=== PATIENT | female | born 1970 | race Caucasian/White ===

== ENCOUNTER 2016-06-23 10:55 | Emergency (ER) | payer MEDICARE ==
[~2016-06-23 10:55] MED LIST: BACTRIM DS TABL1 TAB PO; DICLOFENAC PO; EFFEXOR PO; EFFEXOR XR PO; FLEXERIL PO; IBUPROFEN800 MG PO; LIPITOR PO; MIRENA IUD; NAPROXEN PO; NEURONTIN300 MG PO; ORUDIS75 M1 PO; OYSTER SHELL C500 MG PO; PERCOCET 10/3251 TAB PO; PREDNISONE1 MG PO; PYRIDIUM PO; SILVADENE TOP; SUBOXONE 8 MG-1 EACH SL; SUBOXONE PO; TYLENOL ES PO; VITAMIN D400 UNI1 PO; ZOLOFT100 MG PO; ZOLOFT50 MG PO
[2016-10-12] MEDS ORDERED: NO MEDICATIONS (12:14)
== END 2016-06-23 11:54 | disposition home or self-care (01) ==
LOC: SED 10:55
DX: J02.9 Acute pharyngitis, unspecified (principal); K04.01 Reversible pulpitis; K02.9 Dental caries, unspecified; F17.210 Nicotine dependence, cigarettes, uncomplicated
CPT/HCPCS: 87651; 99283

== ENCOUNTER 2016-08-29 15:18 | Emergency (ER) | payer MEDICARE ==
--- NOTE | ~2016-08-29 | CR72 ---
[facility] A Service [facility] RADIOLOGY TEXT RESULTS PATIENT: WINNIE PIPER LOCATION: SED : 72 UNIT #: [id number] AGE: [address]: Lizeth Villalba SEX: F ORDER DR: [id number] [place] [id number] E MR#: [id number] Acc #: [id number] NAME: WINNIE PIPER. : 1970 SEX: F STUDY DATE/TIME: 08/29/2016 15:43 UNIT: SED ROOM: STUDY DESCRIPTION: CR Chest Single View Portable Attending Physician: Lizeth Villalba Pa-C Referring Physician: Andrei Mata M.D. Ordering Physician: Lizeth Villalba Pa-C Primary Care Physician: Eris Stewart M.D. MEDICAL IMAGING REPORT This report is preliminary unless electronic signature is present. EXAM Portable chest x-ray, 08/29/16. HISTORY Cough, 1 week duration. Cough/congestion. REPORT AP radiograph of the chest presented. COMPARISON 03/01/2010. FINDINGS Heart and mediastinum normal in size and contour. The Lungs are well inflated. No acute pulmonary disease, pleural effusion or pneumothorax. No suspicious nodule. There is mild dextroscoliosis of the [id number] thoracic spine. More pronounced than in 2009. No acute-appearing bone abnormality. Dictated by... Morgan Dowling M.D. THIS IS AN ELECTRONICALLY VERIFIED REPORT Morgan Dowling M.D. at 08/30/2016 5:58 PM AMANDA/angelito TD: 08/29/2016 23:36 JOB #: [id number] [facility] A Service [facility] RADIOLOGY TEXT RESULTS PATIENT: WINNIE PIPER LOCATION: SED : 71 UNIT #: [id number] AGE: [address]: Lizeth Villalba SEX: F ORDER DR: MEDICAL IMAGING REPORT Page 1 of 1
[2016-10-12] MEDS ORDERED: NO MEDICATIONS (12:14)
== END 2016-08-29 17:12 | disposition home or self-care (01) ==
LOC: SED 15:18
DX: J06.9 Acute upper respiratory infection, unspecified (principal); Z90.49 Acquired absence of other specified parts of digestive tract; F17.200 Nicotine dependence, unspecified, uncomplicated
CPT/HCPCS: 71010; 99282

== ENCOUNTER → 2016-10-19 | Day surgery (SDC) | payer MEDICARE ==
[~2016-10-19] MED LIST changes: +NO MEDICATIONS
--- NOTE | ~2016-10-19 | OR ---
Unit #: [id number] #: [id number] Patient: WINNIE PIPER [id number] [address] [place], [place] [address] [id number] O MR#: [id number] NAME: WINNIE PIPER ROOM: Date of Procedure: 10/19/2016 Admission Date: 10/19/2016 Surgeon: Evelio Montano Jr., M.D. : 1970 Attending Physician: Evelio Montano Jr., M.D. Referring Physician: Evelio Montano Jr., M.D. Primary Care Physician: Eris Stewart M.D. OPERATIVE REPORT INDICATIONS FOR PROCEDURE The patient is a 46-year-old white female, who has had a previous laparoscopic cholecystectomy. She developed a port site ventral incisional hernia of the upper midline incision and it was felt since she is having discomfort with this and it is enlarging in size that she should have this repaired. She is brought in this time for repair of this under general anesthesia at her request. She understands the procedure including the risks, including that of recurrence, infection, and intra-abdominal organ injury, and consents. PREOPERATIVE DIAGNOSIS Chronic incarcerated upper midline ventral incisional hernia. POSTOPERATIVE DIAGNOSES Chronic incarcerated upper midline ventral incisional hernia, noting only approximately a 1 cm to 1.5 cm defect with falciform incarcerated within the hernia. ANESTHESIA General with LMA and 0.5% Marcaine with epinephrine locally. PROCEDURE PERFORMED Reduction and repair of incarcerated ventral hernia. DESCRIPTION OF PROCEDURE The patient was positioned in supine position. After being anesthetized, she was prepped and draped in routine fashion for open ventral hernia repair. A transverse incision was made approximately 2.5 inch in length. This was carried down through subcutaneous tissue down to the area of the hernia. There was a significant amount of falciform fatty tissue incarcerated in the hernia. This was freed at its base, clamped, divided, and ligated with 0 silk sutures and reduced back into the abdomen. The portion removal was discarded. After hemostasis was noted, a small Ventralex mesh was placed intraabdominal, and brought up against the anterior abdominal wall and the strap sutured to the fascia with interrupted 0 Ethibond sutures. The fascial defect itself was closed with 3 separate 0 Ethibond sutures using modified David-Mahajan type stitches. The fascia was then checked and completely intact with no evidence of any other defects. Subcutaneous tissue was approximated with interrupted 3-0 Vicryl sutures. Skin edges approximated with stainless-steel skin clips and skin stapling device. Sterile dressings were applied externally. Estimated blood loss minimal, less than 10 mL. The patient received less Unit #: [id number] #: [id number] Patient: WINNIE PIPER L than 1000 mL crystalloid solution during the procedure. Sponges and instruments counts were correct x3. No drains used. No complications. The patient was taken to the recovery room with stable vital signs in satisfactory condition. Dictated by... Evelio Montano Jr., M.D. GARRETT/jose TD: 10/19/2016 13:52 JOB #: [id number] OPERATIVE REPORT Page 1 of 1 X Evelio Montano MD X PROCEDURE OPERATIVE NOTE
== END | disposition home or self-care (01) ==
LOC: CSUR 05:51
DX: K43.0 Incisional hernia with obstruction, without gangrene (principal); F17.200 Nicotine dependence, unspecified, uncomplicated
CPT/HCPCS: J0690; J1885; J2250; J2270; J2405; J3010